=== PATIENT | female | born 1995 ===

== ENCOUNTER 2021-03-29 03:16 | Emergency (ER) | payer SELFPAY ==
[~2021-03-29] VITALS: Ht 172.7 cm; Wt 74.4 kg
[2021-03-29 03:25] VITALS: BP 162/101
== END 2021-03-29 09:44 | disposition left against medical advice (07) ==
LOC: ER 03:16
DX: M25.571 Pain in right ankle and joints of right foot (principal); Z53.21 Procedure and treatment not carried out due to patient leaving prior to being seen by health care provider
CPT/HCPCS: 81025